=== PATIENT | female | born 1975 | race Caucasian/White ===

== ENCOUNTER → 2016-05-22 | Outpatient (CLI) | payer BC ==
[~2016-05-22] MED LIST: FLAGYL250 M1 PO; HYDROCODONE PO; LAMICTAL PO; VIVELLE.0375 MG/2 TOP; WELLBUTRIN XL PO
[2016-05-22 15:00] LABS: THYROID STIMULATING HORMONE 3.05 uIU/ml (0.34-5.60)
[2016-05-22 15:05] LABS: FREE T3 2.7 pg/mL (2.5-3.9)
[2016-05-22 15:06] LABS: FREE THYROXIN (T4) 0.79 ng/dL (0.58-1.64)
== END | disposition home or self-care (01) ==
LOC: CLAB 13:10
PROVIDERS: Internal Medicine Endocrinology, Diabetes & Metabolism
DX: R94.6 Abnormal results of thyroid function studies (principal)
CPT/HCPCS: 84439; 84443; 84481; 86376

== ENCOUNTER → 2016-08-06 | Outpatient (CLI) | payer BC ==
[2016-08-06 16:11] LABS: THYROID STIMULATING HORMONE 1.07 uIU/ml (0.34-5.60)
[2016-08-06 16:15] LABS: FREE T3 3.1 pg/mL (2.5-3.9)
[2016-08-06 16:17] LABS: FREE THYROXIN (T4) 0.89 ng/dL (0.58-1.64)
== END | disposition home or self-care (01) ==
LOC: CLAB 15:01
PROVIDERS: Internal Medicine Endocrinology, Diabetes & Metabolism
DX: E03.9 Hypothyroidism, unspecified (principal)
CPT/HCPCS: 36415; 84439; 84443; 84481

== ENCOUNTER → 2016-11-11 | Outpatient (CLI) | payer BC ==
[2016-11-11 15:25] LABS: THYROID STIMULATING HORMONE 2.22 uIU/ml (0.34-5.60)
[2016-11-11 15:30] LABS: FREE T3 3.1 pg/mL (2.5-3.9)
[2016-11-11 15:31] LABS: FREE THYROXIN (T4) 0.73 ng/dL (0.58-1.64)
== END | disposition home or self-care (01) ==
LOC: CLAB 13:53
PROVIDERS: Internal Medicine Endocrinology, Diabetes & Metabolism
DX: E03.9 Hypothyroidism, unspecified (principal)
CPT/HCPCS: 36415; 84439; 84443; 84481